=== PATIENT | female | born 1985 | race Caucasian/White ===

== ENCOUNTER → 2024-05-26 | Outpatient (CLI) | payer OTHER ==
--- NOTE | 2024-05-26 10:19 | MM ---
Reason for Exam: Clinical finding. Patient History: Menarche at age 14. Hormonal Contraceptives, from age 20 until age 27. Last menstrual period: 05/26/2024 Risk Values: Agnes 5 year model risk: 0.2%. NCI Lifetime model risk: 7.5%. Tissue Density: There are scattered areas of fibroglandular density. Findings: Analyzed By CAD. There is a irregular density within the upper inner left breast 10:00 position. Under compression. This traverses normally. No suspicious mild lateral view. No suspicious groups of microcalcifications, spiculated or lobular masses, architectural distortion or other secondary signs of malignancy are mammographically apparent. Overall Assessment: Probably benign, BI-RAD 3 Management: Diagnostic Mammogram of the left breast in 6 months. A negative mammogram report should not preclude additional follow up of suspicious palpable abnormalities. Patient should continue monthly self breast exam. A clinical breast exam by your physician is recommended on an annual basis and results should be correlated with mammographic findings. Note on Agnes scores and lifetime risk: 1. A Agnes score greater than 3% is considered moderate risk. If this is the case, consider specialist referral to assess eligibility for a risk reducing agent. 2. If overall lifetime risk for the development of breast cancer is 20% or higher, the patient may qualify for future screening with alternating mammogram and breast MRI. [facility], , 05/26/2024 10:16 AM. Electronically signed and approved by: Chencho Jade D.O. Radiologis
== END | disposition home or self-care (01) ==
LOC: RADMAMWWP 09:32
PROVIDERS: ATTEND Family Medicine
DX: N63.20 Unspecified lump in the left breast, unspecified quadrant (principal); R92.323 Mammographic fibroglandular density, bilateral breasts
CPT/HCPCS: 77066; G0279; 77062

== ENCOUNTER → 2024-11-26 | Outpatient (CLI) | payer OTHER ==
--- NOTE | 2024-11-26 11:04 | MM ---
Reason for Exam: Follow-up at short interval from prior study. Last screening mammogram was performed 6 month(s) ago. Patient History: Menarche at age 14. Hormonal Contraceptives, from age 20 until age 27. Last menstrual period: 11/26/2024 Risk Values: Agnes 5 year model risk: 0.3%. NCI Lifetime model risk: 7.4%. Prior Study Comparison: 05/26/2024 Bilateral MG 3D diag mammo w/cad OZZY, [facility]. Tissue Density: Left: The breasts are heterogeneously dense, which may obscure small masses. Findings: Analyzed By CAD. There is a 6 mm nodule 5.4 cm from the nipple in the upper inner margin of the left breast. Ultrasound recommended. No suspicious calcifications. Overall Assessment: Incomplete: need additional imaging evaluation, BI-RAD 0 Management: Diagnostic Breast Ultrasound of the left breast. . Results were given to the patient verbally at the time of exam. Patient should continue monthly self-breast exams. A clinical breast exam by your physician is recommended on an annual basis. This exam should not preclude additional follow-up of suspicious palpable abnormalities. Note on Agnes scores and lifetime risk: 1. A Agnes score greater than 3% is considered moderate risk. If this is the case, consider specialist referral to assess eligibility for a risk reducing agent. 2. If overall lifetime risk for the development of breast cancer is 20% or higher, the patient may qualify for future screening with alternating mammogram and breast MRI. [facility], , 11/26/2024 11:01 AM. Electronically signed and approved by: Mauricio Tellez M.D. Radiologis
--- NOTE | 2024-11-26 11:20 | USB ---
Reason for Exam: Follow-up at short interval from prior study. Patient History: Menarche at age 14. Hormonal Contraceptives, from age 20 until age 27. Risk Values: Agnes 5 year model risk: 0.3%. NCI Lifetime model risk: 7.4%. Technique: Method: Targeted. Prior Study Comparison: 05/26/2024 Bilateral MG 3D diag mammo w/cad [facility], [facility]. Findings: The upper inner quadrant of the left breast, the axilla of the left breast and the retroareolar of the left breast were scanned. A US of upper inner quadrants of the left breast, axilla and retro-areolar region were reviewed. There is a hypoechoic nodule measuring 7 x 5 mm at the 11:00 position left breast. Overall Assessment: Suspicious, BI-RAD 4 Management: Ultrasound Core Biopsy of the left breast. A clinical breast exam by your physician is recommended on an annual basis and results should be correlated with mammographic findings. This exam should not preclude additional follow-up of suspicious palpable abnormalities. Results were given to the patient verbally at the time of exam. [facility], , 11/26/2024 11:17 AM. Electronically signed and approved by: Mauricio Tellez M.D. Radiologis
== END | disposition home or self-care (01) ==
LOC: RADMAMWWP 10:38
PROVIDERS: ATTEND Family Medicine
DX: R92.8 Other abnormal and inconclusive findings on diagnostic imaging of breast (principal); R92.332 Mammographic heterogeneous density, left breast; N63.21 Unspecified lump in the left breast, upper outer quadrant; Z92.0 Personal history of contraception
CPT/HCPCS: 77065; 76642; G0279; 77061

== ENCOUNTER → 2024-12-03 | Day surgery (SDC) | payer OTHER ==
--- NOTE | 2024-12-09 12:57 | MM ---
Reason for Exam: Post Procedure Mammogram. Last screening mammogram was performed 6 month(s) ago. Patient History: Menarche at age 14. Hormonal Contraceptives, from age 20 until age 27. Risk Values: Agnes 5 year model risk: 0.3%. NCI Lifetime model risk: 7.4%. Prior Study Comparison: 01/09/2006 Bilateral Diagnostic Ultrasound, [facility]. 05/26/2024 Bilateral MG 3D diag mammo w/cad OZZY, [facility]. 11/26/2024 Left US breast limited LT, [facility]. 11/26/2024 Left MG 3D diag mammo w/cad LT, [facility]. Tissue Density: Left: There are scattered areas of fibroglandular density. Pathology Description: The oval hypoechoic nodule 11:00 position, 6 cm from the nipple measuring 8 x 7 x 6 mm is identified and targeted for biopsy. The procedure of ultrasound guided core biopsy was explained to the patient. Benefits, alternatives, and risks were discussed. An informed consent was then obtained. The patient was placed in supine positioning for imaging and for the procedure. The overlying skin was prepped and draped in usual sterile fashion. Lidocaine buffered with bicarbonate was used as anesthetic into the skin and subcutaneous tissue up to area of concern in the left breast. Under ultrasound guidance, a 13-gauge vacuum-assisted mammotome Elite biopsy gun was used to obtain 3 core samples. Following this, a HydroMark coil clip was left in lesion. The patient tolerated the procedure well without any immediate complication. The patient was kept in the radiology department for short stay after the procedure and then discharged home in stable condition. Postprocedure mammogram: The patient was transferred to mammography for physician ordered post procedure mammogram for clip placement verification. Post procedure mammogram demonstrates appropriate clip placement at the upper inner quadrant at the site of initially questioned mammographic asymmetry on MLO. IMPRESSION: Successful, uncomplicated ultrasound guided core biopsy of area of small 8 mm nodule at 11:00 left breast. Fibroadenoma is in the differential. Full pathology results to follow. [facility], , 12/03/2024 11:29 AMThe oval hypoechoic nodule 11:00 position, 6 cm from the nipple measuring 8 x 7 x 6 mm is identified and targeted for biopsy. The procedure of ultrasound guided core biopsy was explained to the patient. Benefits, alternatives, and risks were discussed. An informed consent was then obtained. The patient was placed in supine positioning for imaging and for the procedure. The overlying skin was prepped and draped in usual sterile fashion. Lidocaine buffered with bicarbonate was used as anesthetic into the skin and subcutaneous tissue up to area of concern in the left breast. Under ultrasound guidance, a 13-gauge vacuum-assisted mammotome Elite biopsy gun was used to obtain 3 core samples. Following this, a HydroMark coil clip was left in lesion. The patient tolerated the procedure well without any immediate complication. The patient was kept in the radiology department for short stay after the procedure and then discharged home in stable condition. Postprocedure mammogram: The patient was transferred to mammography for physician ordered post procedure mammogram for clip placement verification. Post procedure mammogram demonstrates appropriate clip placement at the upper inner quadrant at the site of initially questioned mammographic asymmetry on MLO. IMPRESSION: Successful, uncomplicated ultrasound guided core biopsy of area of small 8 mm nodule at 11:00 left breast. Fibroadenoma is in the differential. Full pathology results to follow. [facility], , 12/03/2024 11:30 AM. Pathology Results: Result: Benign, Fibroadenoma. Pathology and radiology were reviewed. Findings are concordant. LEFT BREAST, ELEVEN O'CLOCK, ULTRASOUND GUIDED NEEDLE CORE BIOPSY: Fibroadenoma. Overall Assessment: Benign Assessment: MG diagnostic mammo LT wo CAD. - Left: Benign, BI-RAD 2. Management: Diagnostic Mammogram of the left breast in 6 months. Electronically signed and approved by: Stiven Davila M.D. Radiologist
== END ==
LOC: RADUSWWP 09:49
PROVIDERS: ATTEND Surgery
DX: D24.2 Benign neoplasm of left breast (principal)
CPT/HCPCS: 88305; 77065; 19083; A4648

== ENCOUNTER → 2024-12-24 | Outpatient (CLI) | payer OTHER ==
[2024-12-24 15:07] VITALS: BP 158/82; PULSE 93; RESP 17; TEMP 98.7
--- NOTE | 2024-12-24 15:13 | P.PN ---
Subjective Progress Note Date: 12/24/24 Principal diagnosis: fibroadenoma left breast History of Present Illness Consult date: 08/05/24 Reason for Consult: abnormal left breast mammogram/ left breast abscess Requesting physician: Markell Petersen History of present illness: Jayne is a 38 year old female seen in consultation for DR. Petersen regarding a left breast mammograiphic abnormality and al proro left bresat abscess. She had a bilateral mammogram on 05-26-24 which was BIRAD 3, repeat left breast mammogram in 6 months. She had a left lower inner quadrant abscess noted on 06-26-24, cultures + E nterococcus Feacalis. Started on Clindamycin. In November of 2023 she was power washing her house and noted redness and swelling under her left breast, it lasted about 4 days and then gone. It happened again several months later. It has occurred at least three times. The antibiotic seemed to help. This flares up at the time of her menstraul cycle. She did not have any fever. She states it was red, and inflamed, and they attempted to drain the area but did not get any pus. Her first mammogram was on 05-26-24. She had a left breast mammogram and ultrasound on 11-26-24. This resulted in recommendation for a left breast biopsy for a 7 by 5 mm lesion. This was done on 12-03-24 and was benign concordant, fibroadenoma. She tolerated the biopsy without difficulty. She is not complaining of any new lumps masses or nodules of concern in either breast. 5 year risk: 0.2% lifetime risk: 7.5% note Dr. Petersen 06-26-24 reviewed; recurrent left breast abscess caffeine: 2 pops/day nicotine: vape 1 lasts 1 1/2 weeks; sine 16 chocolate: wekkly BCP: stopped them about 16 years ago hormones: none Family History: maternal great grandfather: breast cancer maternal grand father: kidney cancer great grandmother maternal: eye and nose cancer Hormonal History: menarche: 15 G0 periods regular Surgical History: left wrist 4 wisdom teeth Medical History: none Social History: nicotine: as above alcohol: rare drugs: marijuana gummie daily Review of Systems - Constitutional Denies fever, Denies weight loss - EENT Eyes: denies blurred vision Ears: deny: decreased hearing, tinnitus Ears, nose, mouth and throat: Denies dysphagia - Breasts bilateral: as per HPI - Cardiovascular Denies chest pain, Denies shortness of breath - Respiratory Denies cough, Denies 7 - Gastrointestinal Reports as per HPI - Genitourinary Genitourinary: Denies dysuria, Denies hematuria Menstruation: Reports period normal - Musculoskeletal Reports as per HPI - Integumentary Integumentary Comment(s): eczma Denies rash, Denies unusual bruising - Neurological Denies headaches, Denies syncope - Psychiatric Reports anxiety, Reports depression - Endocrine Reports as per HPI, Reports fatigue - Hematologic/Lymphatic Denies easy bleeding, Denies easy bruising - Allergic/Immunologic Reports as per HPI Medications and Allergies Home Medications Medication Instructions Recorded Confirmed Type FLUoxetine HCL [PROzac] 20 mg PO DAILY 08/05/24 08/05/24 History Losartan [Cozaar] 50 mg PO DAILY 08/05/24 08/05/24 History Allergies Allergy/AdvReac Type Severity Reaction Status Date / Time amoxicillin Allergy Swelling Unverified 08/05/24 14:35 sulfamethoxazole Allergy Rash/Hives Unverified 08/05/24 14:35 [From Bactrim] trimethoprim [From Bactrim] Allergy Rash/Hives Unverified 08/05/24 14:35 Objective - Constitutional General appearance: Present: cooperative - EENT Eyes: Present: EOMI ENT: Present: hearing grossly normal - Neck Neck: Present: normal ROM - Respiratory Respiratory: bilateral: CTA - Cardiovascular Rhythm: regular Heart sounds: normal: S1, S2 - Integumentary Integumentary: Present: normal turgor - Musculoskeletal Musculoskeletal: Present: gait normal - Psychiatric Psychiatric: Present: A&O x's 3, appropriate affect, intact judgment & insight - Additional findings Additional findings: Breast Exam: BRA: sports bra 3XXX inspection: Bilateral grade 2/3 ptosis Palpation: Right breast: Multi positional exam no dominant masses or nodules of concern Right axilla: No adenopathy of concern Left breast: Multi positional exam no dominant masses or nodules of concern In the lower inner quadrant there is a small resolved pustule in the skin there does not appear to be any tissue of concern in the breast parenchyma at this site; biopsy site clean and dry no evidence of hematoma or infection Left axilla: No adenopathy of concern Under left breast fungal infection Assessment and Plan Assessment: Assessment and Plan Assessment: Impression: Fibrocystic breast changes Recurrent left breast lower inner quadrant pustule which is resolved at this ti me Fungal infection under left breast resolved Biopsy-proven left breast fibroadenoma Plan: Nystatin as needed for fungal infection Keep the area under the left breast dry Try to abstain from caffeine and nicotine to decrease the inflammation in the breast Repeat bilateral mammogram and left breast ultrasound in 6 months with examination at that time CC: Dr. Petersen
== END ==
LOC: WWCWWP 14:31
PROVIDERS: ATTEND Surgery
DX: N60.12 Diffuse cystic mastopathy of left breast (principal); R92.8 Other abnormal and inconclusive findings on diagnostic imaging of breast; F12.90 Cannabis use, unspecified, uncomplicated; Z88.0 Allergy status to penicillin; Z88.2 Allergy status to sulfonamides